=== PATIENT | male | born 1945 | race Caucasian/White ===

== ENCOUNTER 2023-07-08 12:38 | Outpatient (CLI) | payer MEDICARE | END 2023-07-08 12:39 | disposition home or self-care (01) | LOC: CSHMRI 12:38 | PROVIDERS: ATTEND Neurological Surgery | DX: M48.062 Spinal stenosis, lumbar region with neurogenic claudication (principal); R93.7 Abnormal findings on diagnostic imaging of other parts of musculoskeletal system; M51.36 Other intervertebral disc degeneration, lumbar region; M47.816 Spondylosis without myelopathy or radiculopathy, lumbar region | CPT/HCPCS: 72148 ==